=== PATIENT | male | born 2000 | race Two or more races ===

== ENCOUNTER 2024-09-11 19:50 | Emergency (ER) | payer OTHER, SELFPAY ==
[2024-09-11 19:51] VITALS: BMI 46.5
[2024-09-11 19:59] VITALS: BP 180/124; PULSE 117; RESP 20; TEMP 36.8; O2SAT 99; BMI 46.5
--- NOTE | 2024-09-11 20:15 | XR_ITS ---
Examination: PA lateral chest 2 views Technique: Upright PA lateral chest 2 views Exam date and time: September 11, 20242037 hrs. Comparison March 20, 2020 Indications: Chest pain shortness of breath beginning today. Findings: Mild prominence cardiac contour Mild vascular congestion Suspicious for early infiltrate in the left upper lobe Median sternotomy wires and surgical clips Impression: Mild vascular congestion Suspicious for mild pneumonia left upper lobe
--- NOTE | 2024-09-11 20:15 | PD.EDRME ---
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 Patient states he will still need some kind of valve replacement/repair. Patient has not seen cards in 2 years. Chief Complaint: Chest Pain Vital signs: Vital Signs Temperature 98.3 F 09/11/24 19:59 Pulse Rate 117 H 09/11/24 19:59 Respiratory Rate 20 09/11/24 19:59 Blood Pressure 180/124 H 09/11/24 19:59 Pulse Oximetry (%) 99 09/11/24 19:59 Oxygen Delivery Method Room Air 09/11/24 19:59
[2024-09-11 21:09] LABS: Basophils % (Auto) 0 % (0-2.5); Eosinophils # (Auto) 0.1 Thou/mm3 (0.0-0.5); Eosinophils % (Auto) 1 % (0-10); Hemoglobin 15.4 g/dL (13.5-16.0); Immature Granulocytes % (Auto) 1 % (0-0); Immature Granulocytes Auto 0.16 Thou/mm3 (0.00-0.00); Lymphocytes # (Auto) 2.4 Thou/mm3 (1.0-4.8); Lymphocytes % (Auto) 19 % (10-50); Mean Corpuscular HGB Conc 33.5 g/dl (31.0-37.0); Mean Corpuscular Hemoglobin 28.6 pg (25.0-35.0); Mean Corpuscular Volume 86 fL (80-100); Monocytes # (Auto) 1.1 Thou/mm3 (0.0-0.8); Monocytes % (Auto) 9 % (0-12); Neutrophils % (Auto) 70 % (37-80); Nucleated Red Blood Cell % 0 /100 WBC (0); Platelet Count 391 Thou/mm3 (140-440); RDW Standard Deviation 42.1 fL (35.1-43.9); Red Blood Count 5.38 Miln/mm3 (4.50-5.90); White Blood Count 12.8 Thou/mm3 (3.8-10.6)
[2024-09-11 21:19] LABS: B-Type Natriuretic Peptide < 20 pg/mL (0-100)
[2024-09-11 21:22] LABS: Amphetamine/Methamp Scrn,U Negative (Negative); Barbiturate Screen,Urine Negative (Negative); Benzodiazepines Screen,Urine Negative (Negative); Benzoylecgonine Screen, Ur Negative (Negative); Fentanyl Screen,Urine Negative (Negative); Opiate Screen,Urine Negative (Negative); THC Screen,Urine Negative (Negative)
[2024-09-11 21:34] VITALS: BP 176/101; PULSE 124; RESP 19; TEMP 36.9; O2SAT 98
[2024-09-11 22:02] LABS: Alanine Aminotransferase 19 U/L (10-49); Albumin, Serum 4.7 gm/dL (3.5-5.0); Albumin/Globulin Ratio 1.1 (1.2-2.2); Alkaline Phosphatase 67 U/L (46-116); Anion Gap 5 (7-16); Aspartate Amino Transferase 17 U/L (0-34); BUN/Creatinine Ratio 14 Ratio (12-20); Bilirubin,Total 0.3 mg/dL (0.3-1.2); Blood Urea Nitrogen 11 mg/dL (9-23); Calcium 9.7 mg/dL (8.3-10.6); Calcium (Corrected) 9.7 mg/dL (8.5-10.1); Carbon Dioxide 26.7 mMol/L (20.0-31.0); Chloride 103 mMol/L (98-107); Creatinine (Component) 0.8 mg/dL (0.6-1.3); Estimated Creatinine Clearance 198.8 mL/min (>60); Globulin 4.1 gm/dL (2.3-3.5); Glucose 135 mg/dL (74-106); Osmolality,Calculated 271 (275-295); Potassium 3.8 mMol/L (3.4-5.1); Sodium 135 mMol/L (136-145); Total Protein 8.8 gm/dL (5.7-8.2); Troponin I < 0.020 ng/mL (0.0-0.045); eGFR > 60 See Note
--- NOTE | 2024-09-11 22:33 | EDNOTE_ITS ---
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 Patient states he will still need some kind of valve replacement/repair. Patient has not seen cards in 2 years. ----- Dr. Jarvis's Main ED Evaluation: 23yo male presents to the ED for a chief complaint of left-sided chest pain x 45 minutes [employer]. Patient states his pain radiates down his left arm, rating the pain a 5 out of 10 in severity. He denies any shortness of breath, nausea, vomiting or any other associated symptoms. He states his pain lasted for ~30 minutes. No known allergies. Related Data Home Medications ?Medication ?Instructions ?Recorded ?Confirmed albuterol sulfate 90 mcg/actuation 1 puff inhalation QID 03/20/20 05/28/20 aerosol inhaler aspirin 81 mg chewable tablet 81 mg PO QDAY 03/20/20 05/28/20 Previous Rx's ?Medication ?Instructions ?Recorded acetaminophen 300 mg-codeine 30 mg 1 tab PO Q6H PRN pain #15 tabs 05/28/20 tablet (Tylenol-Codeine #3) ibuprofen 800 mg tablet 800 mg PO Q8H PRN pain #30 tabs 05/28/20 Allergies Allergy/AdvReac Type Severity Reaction Status Date / Time No Known Allergies Allergy Verified 05/28/20 02:28 Review of Systems Review of Systems Systems Reviewed: All systems reviewed, normal except as documented Past Medical History Past Medical History CARDIAC: Positive Cardiac Disorders (TETROLOGY OF FALLOT) and Heart Murmur; Negative Congestive Heart Failure RESPIRATORY: Positive Asthma; Negative Chronic Obstructive Pulmonary Disease (COPD) GENITOURINARY: Negative Renal Disease ENDOCRINE: Negative Diabetes Mellitus Type 1 or Diabetes Mellitus Type 2 Surgical History SURGICAL: Positive Cardiac Surgery, Open Heart Surgery (X2), Coronary Stent and Abdominal Surgery Social History SMOKING STATUS: Never smoker SUBSTANCE USE: does not use ED Exam General Limitations: Present no limitations General appearance: Present alert, in no apparent distress and obese Head Head exam: Present atraumatic Eye Eye exam: Present normal appearance, PERRL and EOMI ENT ENT exam: Present normal exam, normal oropharynx and mucous membranes moist Neck Neck exam: Present normal inspection, full ROM and trachea midline Chest Chest inspection: Present normal inspection and symmetric chest wall rise Respiratory Respiratory exam: Present normal lung sounds bilaterally Cardiovascular Cardiovascular exam: Present regular rate, normal rhythm and normal heart sounds Abdominal Exam Abdominal exam: Present soft and normal bowel sounds Extremities Exam Extremities exam: Present full ROM and pedal edema (at the bilateral ankles) Back Exam Back exam: Present normal inspection and full ROM Neurological Exam Neurological exam: Present alert, oriented X3 and CN II-XII intact Psychiatric Psychiatric exam: Present normal affect and normal mood Skin Skin exam: Present warm, dry, intact and normal color Course Course Course Narrative: CXR is ordered for determining the etiology of chest pain. Quality Measures none Orders Category Date Time Status CT Screening NOW Care 09/12/24 00:13 Completed EKG (ED ONLY) *Do not use* NOW Care 09/11/24 19:[address] angio chest Stat Exams 09/12/24 00:13 Taken EKG (ED Only) Stat Exams 09/11/24 19:53 Ordered XR chest 2V Stat Exams 09/11/24 20:15 Completed B-Type Natriuretic Peptide Stat Lab 09/11/24 20:27 Completed CBC Stat Lab 09/11/24 20:27 Completed Comprehensive Metabolic Panel Stat Lab 09/11/24 20:27 Completed Drug Screen,Urine Stat Lab 09/11/24 20:38 Completed Magnesium Stat Lab 09/11/24 20:27 Completed Troponin I Stat Lab 09/11/24 20:27 Completed Vital Signs Vital signs: Vital Signs Temperature 98.3 F 09/11/24 19:59 Pulse Rate 117 H 09/11/24 19:59 Respiratory Rate 20 09/11/24 19:59 Blood Pressure 180/124 H 09/11/24 19:59 Pulse Oximetry (%) 99 09/11/24 19:59 Oxygen Delivery Method Room Air 09/11/24 19:59 Pulse ox is 99% on room air, which is normal according to my interpretation. Chest Pain MDM Narrative MDM Narrative:: Differential diagnosis includes IA, PE, asthma exacerbation, problems with his previous surgery. In the emergency department the patient had a CT angio that showed no pulmonary thromboembolism or other acute injury or thoracic pathology. Patient is pain-free at 0 318. Return precautions are given and understood. Patient data External records reviewed:: [facility] previous records (Per chart review, patient was seen here on 03/20/20 for chest pain.) Clinical information provided by:: patient Social determinants that could affect healthcare access:: none Patient has the following chronic illnesses:: asthma How is presenting disease/condition affected by chronic disease/condition?: uneffected by Evaluation data The following diagnostics were reviewed and interpreted by me:: lab results, radiology exam(s) and EKG tracing(s) Lab and/or radiology exams considered but not ordered:: none Interpretation Summary: WBC count is elevated at 12.8, BNP is normal, Magnesium is normal, Troponin is normal, UDS is negative, according to my interpretation. EKG done at 1956, sinus tachycardia, rate of 120, RVH, poor baseline, QTc: 400, RBBB, unchanged from previous EKG done in 02/2020. ---- I have personally reviewed the radiology data and agree with the radiologist's interpretation below: [facility] Report Signed Patient: FELICITA MEDINA [place]. Record#: [id number] Birthdate: 2000 Age/Sex: 23 / M Location: [facility] Attending Dr: Ordering Physician: Julio Cesar Allen PA-C Date of Service: 09/11/24 Procedure(s): XR chest 2V Accession Number(s): [id number] cc: Silvio Rees MD; NO PRIMARY/FAMILY,PHYSICIAN; Julio Cesar Allen PA-C~ Examination: PA lateral chest 2 views Technique: Upright PA lateral chest 2 views Exam date and time: September 11, 2024 2038 hrs. Comparison March 20, 2020 Indications: Chest pain shortness of breath beginning today. Findings: Mild prominence cardiac contour Mild vascular congestion Suspicious for early infiltrate in the left upper lobe Median sternotomy wires and surgical clips Impression: Mild vascular congestion Suspicious for mild pneumonia left upper lobe Dictated By: Silvio Rees MD Signed By: <Electronically signed by Silvio Rees MD in [place]> 09/11/242146 CXR shows poor inspiratory effort, mild cardiomegaly, no pleural effusions, mild increased vascular markings, according to my interpretation. ----- [facility] Preliminary Report Draft Patient: FELICITA MEDINA [place]. Record#: [id number] Birthdate: 2000 Age/Sex: 23 / M Location: [facility] Attending Dr: Ordering Physician: Date of Service: Procedure(s): Accession Number(s): cc: ~ CT angiogram of the chest with intravenous contrast (axial sections with sagittal and coronal reformats) September 12, 2024 0056 hours Clinical History: 23-year-old male with history of and tachycardia Technique:Helical axial sections with sagittal and coronal reformats of the chest were obtained with intravenous contrast. Iterative reconstruction technique was employed to reduce patient radiation exposure. 3D/MIP reconstructed images were also provided. Comparison: No prior study is available for comparison. Findings: There is no filling defect within the pulmonary artery divisions to suggest pulmonary thromboembolism. The mediastinum demonstrates no evidence of mass or lymphadenopathy. The thoracic aorta is unremarkable. There is no pericardial effusion. The lungs are clear. No evidence of pleural effusion or pneumothorax. The osseous structures are unremarkable. The visualized upper abdominal viscera are unremarkable.There is endoluminal stents in pulmonary arteries. Post operative changes are noted in the right ascending aorta. Impression: No CT evidence of pulmonary thromboembolism or other acute intrathoracic pathology. Report Electronically Signed By: Stephane Moe 09/12/2024 2:46:12 AM [EST] Medications / Prescriptions Medications or Prescriptions considered but not ordered:: none Medication administrations:: see above, if any Consultations Consultation(s) initiated? (list below): No Diagnosis Chest Pain Differential Diagnosis: other (PE, dehydration, alcohol use) Most likely diagnosis given after review of the tests above:: see below Admission Indicated Admission indicated?: not indicated Admission Request Was there a request for admission?: No Disposition Plan Disposition Plan: Discharge Discharge Attestation Discharge Attestation: The patient and all family members were given an opportunity to ask questions and understood the discharge instructions. Discharge instructions specifically effects, indications for sooner follow up or return to the emergency department, and the expected course of current diagnosis. Patient condition: Stable Discharge Plan Plan Patient Disposition: HOME (Self Care) Patient condition on transfer: Stable Prescriptions/Referrals Prescriptions/Med Rec: No Action aspirin 81 mg Tablet,Chewable 81 mg PO QDAY albuterol sulfate 90 mcg/actuation Hfa Aerosol Inhaler 1 puff INHALATION QID ibuprofen 800 mg tablet 800 mg PO Q8H PRN (Reason: pain) Qty: 30 0RF acetaminophen-codeine [Tylenol-Codeine #3] 300-30 mg tablet 1 tab PO Q6H PRN (Reason: pain) Qty: 15 0RF Referrals: No Primary/Family,Physician [Primary Care Provider] - In 1 week Problem List Clinical Impression: Atypical chest pain Patient/Caregiver Discharge Instructions Education Materials: ED Chest Pain, Uncertain Cause Additional Instructions: Please return to emergency department for any worsening symptoms, any other concerns. Follow-up with your primary care physician as prescribed. Take all your medications as indicated by your doctor. Print Language: Luxembourgish Stand Alone Forms: [employer] Award Info., Patient Portal Info Letter
[2024-09-12] VITALS: BP 131/99; PULSE 112; RESP 16; O2SAT 98
--- NOTE | 2024-09-12 00:13 | XR_ITS ---
Examination: CTA chest with intravenous contrast 2-D reconstructions 3-D reconstructions, vascular Date and time of exam: September 12, 2024 0056 hrs. Indications: Tachycardia chest pain shortness of breath today CTDI: vol (mGy) 45.5 DLP: (mGycm) 590 Technique: Multiple axial sections of the thorax have been obtained. 3 mm slice thickness, from below the hemidiaphragms to above the apices of the lungs. Mediastinal and lung density settings have been obtained. 2-D sagittal and coronal reconstructions. 3-D angiographic renderings, 3-D volume renderings, 3D post processing, vascular maximum intensity projections obtained. Contrast administered is 100 cc Isovue-370. Low dose protocols were performed. One or more of the following dose reduction techniques were used; automated exposure control, adjustment of the mA and/or KV according to patient size, use of iterative reconstruction technique. Findings: No thoracic aortic aneurysm dilatation Stents in the right and left main pulmonary artery branches Pulmonary artery opacification is not optimal, no gross pulmonary artery emboli No paratracheal tracheobronchial or bronchopulmonary adenopathy No pneumonia, pulmonary edema or pleural disease No visualized liver or splenic lesion No pancreatic mass Intact osseous structures Impression: Pulmonary artery opacification is not optimal, no gross pulmonary artery emboli No pneumonia, pulmonary edema or pleural disease
[2024-09-12 02:13] VITALS: BP 139/85; PULSE 101; RESP 20; TEMP 36.6; O2SAT 98
[2024-09-12 03:27] VITALS: BP 144/91; PULSE 97; RESP 15; O2SAT 99
--- NOTE | 2024-09-12 04:39 | PRELIM_ITS ---
CT angiogram of the chest with intravenous contrast (axial sections with sagittal and coronal reforma ts) September 12, 2024 0056 hours Clinical History: 23-year-old male with history of and tachycardia T echnique:Helical axial sections with sagittal and coronal reformats of the chest were obtained with i ntravenous contrast. Iterative reconstruction technique was employed to reduce patient radiation expo sure. 3D/MIP reconstructed images were also provided. Comparison: No prior study is available for [facility]. Findings:There is no filling defect within the pulmonary artery divisions to suggest pulmona ry thromboembolism. The mediastinum demonstrates no evidence of mass or lymphadenopathy. The thoracic aorta is unremarkable. There is no pericardial effusion. The lungs are clear. No evidence of pleural effusion or pneumothorax.The osseous structures are unremarkable.The visualized upper abdominal visc era are unremarkable.There is endoluminal stents in pulmonary arteries. Post operative changes are no prosper in the right ascending aorta.Impression:No CT evidence of pulmonary thromboembolism or other acut e intrathoracic pathology. Report Electronically Signed By: Stephane Moe 09/12/2024 2:46:12 AM [EST]
== END 2024-09-12 03:27 | disposition home or self-care (01) ==
PROVIDERS: Physician Assistant; Emergency Provider Emergency Medicine
DX: R07.89 Other chest pain (principal); R09.89 Other specified symptoms and signs involving the circulatory and respiratory systems; R00.0 Tachycardia, unspecified; I45.89 Other specified conduction disorders
CPT/HCPCS: 36415; 71046; 71275; 80053; 80307; 83735; 83880; 84484; 85025; 93005; 99285; A4649; Q9967